=== PATIENT | male | born 1945 | race Asian ===

== ENCOUNTER 2023-10-23 11:02 | Inpatient (IN) | payer OTHER, MEDICAID ==
[~2023-10-23] VITALS: Ht 165.1 cm; Wt 63.5 kg
[2023-10-23 11:03] VITALS: BP_SYST 110; PULSE 114; RESP 17; TEMP 101.7; O2SAT 97
[2023-10-23] MEDS ORDERED: PIPERACILLIN/TAZOBACTAM 3.375 GM/VIAL (ZOSYN) IV ONE (11:51)
[2023-10-23 11:52] LABS: BASOPHILS # (AUTO) 0.1 K/uL (0.0-0.2); BASOPHILS % (AUTO) 0.8 % (0.0-2.0); EOSINOPHILS # (AUTO) 0.1 K/uL (0.0-0.4); EOSINOPHILS % (AUTO) 0.5 % (0.0-4.0); HEMATOCRIT 29.6 % (36-54); LYMPHOCYTES # (AUTO) 0.4 K/uL (1.0-5.5); LYMPHOCYTES % (AUTO) 2.6 % (20.5-51.5); MEAN CORPUSCULAR HEMOGLOBIN 34 pg (27-31); MEAN CORPUSCULAR HGB CONC 34 % (32-36); MEAN CORPUSCULAR VOLUME 100 fL (79.0-98.0); MONOCYTES # (AUTO) 0.9 K/uL (0.0-1.0); MONOCYTES % (AUTO) 6.1 % (1.7-9.3); PLATELET COUNT (AUTO) 369 K/uL (130-430); RED BLOOD CELL COUNT(AUTO) 2.98 MIL/uL (4.2-6.2); RED CELL DISTRIBUTION WIDTH 13.1 % (9.0-15.0); WHITE BLOOD COUNT (AUTO) 14.4 K/uL (4.8-10.8)
[2023-10-23 12:09] LABS: COVID19 ANTIGEN SOFIA FIA NEGATIVE (NEGATIVE)
[2023-10-23 12:09] LABS: ALANINE AMINOTRANSFERASE 41 U/L (12-78); ALBUMIN 2.1 g/dL (3.4-4.8); ANION GAP 9 (5-15); ASPARTATE AMINOTRANSFERASE 28 U/L (10-37); CALCIUM 8.4 mg/dL (8.4-11.0); CARBON DIOXIDE 23 mmol/L (23-29); CHLORIDE 103 mmol/L (98-107); GLUCOSE 111 mg/dL (74-106); POTASSIUM 4.6 mmol/L (3.5-5.1); SODIUM SERUM 135 mmol/L (136-145); TOTAL BILIRUBIN 0.5 mg/dL (0.0-1.0); TOTAL PROTEIN, SERUM 7.2 g/dL (6.4-8.3); UREA NITROGEN, BLOOD 27 mg/dL (8-21)
[2023-10-23 12:11] LABS: BILIRUBIN,DIRECT 0.2 mg/dL (0.0-0.3)
[2023-10-23] MEDS: NS 1000 ML IV.SOLN IV ONE (12:14)
[2023-10-23] MEDS: ACETAMINOPHEN 325 MG TABLET PO ONE (12:14)
[2023-10-23] MEDS: PIPERACILLIN/TAZO 3.375 GM in D5W 50 ML IV ONE (12:14)
[2023-10-23 12:17] LABS: PROTHROMBIN TIME 10.7 SECS (9.5-12.5)
[2023-10-23 12:19] LABS: INFLUENZA TYPE A NEGATIVE (NEGATIVE); INFLUENZA TYPE B NEGATIVE (NEGATIVE)
[2023-10-23 12:21] LABS: BILIRUBIN,URINE NEGATIVE (NEGATIVE); BLOOD, URINE 3+ (NEGATIVE); CLARITY/URINE SL CLOUDY (CLEAR); COLOR,URINE YELLOW (YELLOW); GLUCOSE,URINE NEGATIVE (NEGATIVE); KETONES,URINE NEGATIVE (NEGATIVE); LEUKOCYTE ESTERASE ,URINE 2+ (NEGATIVE); NITRITE, URINE POSITIVE (NEGATIVE); PROTEIN URINE 1+ (NEGATIVE); UROBILINOGEN,URINE 0.2 (0.2-1.0)
[2023-10-23] MEDS: AZITHROMYCIN 500 MG in D5W 250 ML IV ONE (12:27)
[2023-10-23] MEDS ORDERED: AZITHROMYCIN 500 MG/VIAL (ZITHROMAX) IV ONE (12:29)
[2023-10-23] MEDS ORDERED: AMLO5TAB92 PO (12:46)
[2023-10-23] MEDS ORDERED: IRBE150T48 (12:46)
[2023-10-23] MEDS ORDERED: MEMA10TA22 PO (12:46)
[2023-10-23] MEDS ORDERED: DONE10TA44 PO (12:46)
[2023-10-23 12:48] LABS: BACTERIA,URINE MODERATE /HPF (None Seen)
[2023-10-23 12:49] LABS: WBC,URINE 50-80 /HPF (0-3)
[2023-10-23] MEDS ORDERED: [UNRECOGNIZED DRUG - CODE] (12:49)
[2023-10-23] MEDS ORDERED: ZINC50TA2 (12:49)
[2023-10-23] MEDS ORDERED: SENN-153 (12:49)
[2023-10-23] MEDS ORDERED: MOM (12:49)
[2023-10-23] MEDS ORDERED: DULR10 (12:49)
[2023-10-23] MEDS ORDERED: HEPA500015 (12:49)
[2023-10-23] MEDS: VANCOMYCIN HCL 1,000 MG in D5W 250 ML IV ONE (13:24)
[2023-10-23] MEDS ORDERED: VANCOMYCIN HCL 1000 MG/VIAL IV ONE (13:27)
[2023-10-23] MEDS: NACL 0.9% 1,000 ML IV SCH (16:29)
[2023-10-23] MEDS: MEMANTINE HCL 5 MG TABLET PO SCH (21:00)
[2023-10-23 22:00] VITALS: BP_SYST 96; PULSE 88; RESP 18; TEMP 98.1
[2023-10-23 22:01] VITALS: BP_SYST 96; PULSE 85; RESP 17; TEMP 98.2; O2SAT 98
[2023-10-24 02:01] VITALS: BP_SYST 101; PULSE 81; RESP 16; TEMP 98.2; O2SAT 97
[2023-10-24 04:01] VITALS: BP_SYST 101; PULSE 82; RESP 16; TEMP 98.7; O2SAT 97
[2023-10-24 07:26] LABS: BASOPHILS # (AUTO) 0.1 K/uL (0.0-0.2); BASOPHILS % (AUTO) 0.4 % (0.0-2.0); EOSINOPHILS # (AUTO) 0.4 K/uL (0.0-0.4); EOSINOPHILS % (AUTO) 2.5 % (0.0-4.0); HEMOGLOBIN 9.1 g/dL (14.0-18.0); LYMPHOCYTES # (AUTO) 0.8 K/uL (1.0-5.5); MEAN CORPUSCULAR HEMOGLOBIN 34 pg (27-31); MEAN CORPUSCULAR HGB CONC 34 % (32-36); MEAN CORPUSCULAR VOLUME 101 fL (79.0-98.0); MONOCYTES # (AUTO) 1.5 K/uL (0.0-1.0); MONOCYTES % (AUTO) 8.7 % (1.7-9.3); NEUTROPHILS % (AUTO) 83.4 % (40.0-70.0); RED BLOOD CELL COUNT(AUTO) 2.67 MIL/uL (4.2-6.2); RED CELL DISTRIBUTION WIDTH 12.9 % (9.0-15.0); WHITE BLOOD COUNT (AUTO) 16.8 K/uL (4.8-10.8)
[2023-10-24 08:00] VITALS: BP_SYST 93; PULSE 102; RESP 18; TEMP 98.2; O2SAT 95; O2SAT 98
[2023-10-24 08:02] LABS: ANION GAP 12 (5-15); CALCIUM 8.1 mg/dL (8.4-11.0); CARBON DIOXIDE 20 mmol/L (23-29); CHLORIDE 105 mmol/L (98-107); CREATININE 1.53 mg/dL (0.55-1.30); GLUCOSE 85 mg/dL (74-106); POTASSIUM 4.4 mmol/L (3.5-5.1); SODIUM SERUM 137 mmol/L (136-145); UREA NITROGEN, BLOOD 25 mg/dL (8-21)
[2023-10-24] MEDS: MEROPENEM 500 MG in NS 50 ML IV SCH (08:33)
[2023-10-24] MEDS: SENNOSIDES 8.6 MG TABLET GT SCH (08:40)
[2023-10-24] MEDS: DONEPEZIL HCL 5 MG TABLET (ARICEPT) PO SCH (08:40)
[2023-10-24] MEDS: BISACODYL 10 MG/SUPPOSITORY RC SCH (08:49)
[2023-10-24 09:30] LABS: PLATELET COUNT (AUTO) 331 K/uL (130-430)
[2023-10-24 12:02] VITALS: BP_SYST 106; PULSE 104; RESP 17; TEMP 98.6; O2SAT 96
[2023-10-24] MEDS: amLODIPine BESYLATE 5 MG TABLET PO SCH (15:21)
[2023-10-24] MEDS: MILK OF MAGNESIA 30 ML UDC PO SCH (17:16)
[2023-10-24 20:00] VITALS: BP_SYST 116; PULSE 103; RESP 18; TEMP 98.2; O2SAT 95
[2023-10-24] MEDS: HEPARIN SODIUM,PORCINE 5,000 UNITS/ML VIAL SUBCUT SCH (21:10)
[2023-10-25] VITALS: BP_SYST 117; PULSE 97; RESP 17; TEMP 98; O2SAT 96
[2023-10-25 08:00] VITALS: O2SAT 94
[2023-10-25 08:24] VITALS: BP_SYST 123; PULSE 91; RESP 20; TEMP 98.6; O2SAT 95
[2023-10-25] MEDS: BISACODYL 10 MG/SUPPOSITORY RC SCH (09:00)
[2023-10-25] MEDS: LOSARTAN POTASSIUM 50 MG TABLET (COZAAR) PO SCH (09:21)
[2023-10-25 12:30] VITALS: BP_SYST 107; PULSE 94; RESP 20; TEMP 98.4; O2SAT 94
[2023-10-25 14:40] LABS: BASOPHILS % (AUTO) 0.5 % (0.0-2.0); EOSINOPHILS # (AUTO) 0.3 K/uL (0.0-0.4); EOSINOPHILS % (AUTO) 4.1 % (0.0-4.0); HEMATOCRIT 31.8 % (36-54); HEMOGLOBIN 10.8 g/dL (14.0-18.0); LYMPHOCYTES # (AUTO) 0.7 K/uL (1.0-5.5); LYMPHOCYTES % (AUTO) 8.7 % (20.5-51.5); MEAN CORPUSCULAR HEMOGLOBIN 35 pg (27-31); MEAN CORPUSCULAR HGB CONC 34 % (32-36); MEAN CORPUSCULAR VOLUME 103 fL (79.0-98.0); MONOCYTES # (AUTO) 0.9 K/uL (0.0-1.0); MONOCYTES % (AUTO) 11.5 % (1.7-9.3); NEUTROPHILS # (AUTO) 5.8 K/uL (1.8-7.7); NEUTROPHILS % (AUTO) 75.2 % (40.0-70.0); PLATELET COUNT (AUTO) 317 K/uL (130-430); RED BLOOD CELL COUNT(AUTO) 3.09 MIL/uL (4.2-6.2); RED CELL DISTRIBUTION WIDTH 13.6 % (9.0-15.0); WHITE BLOOD COUNT (AUTO) 7.8 K/uL (4.8-10.8)
[2023-10-25] MEDS: BALSAM PERU/CASTOR OIL 56.7 GM OINT...G. TP SCH (15:52)
[2023-10-25] MEDS: FLUCONAZOLE 200 mg/ NS 100 ML IV SCH (15:53)
[2023-10-25 16:44] VITALS: BP_SYST 122; PULSE 100; RESP 20; TEMP 98.6; O2SAT 99
[2023-10-25 20:00] VITALS: BP_SYST 116; PULSE 91; RESP 18; TEMP 98.2; O2SAT 97
[2023-10-26 08:00] VITALS: BP_SYST 126; PULSE 68; RESP 18; TEMP 97.6; O2SAT 97
[2023-10-26 12:31] VITALS: BP_SYST 105; PULSE 87; RESP 16; TEMP 98.3; O2SAT 95
[2023-10-26 16:15] VITALS: BP_SYST 129; PULSE 88; RESP 16; TEMP 98.6; O2SAT 99
[2023-10-26 20:00] VITALS: BP_SYST 108; PULSE 81; RESP 17; TEMP 98.2; O2SAT 97
[2023-10-27] VITALS: BP_SYST 112; PULSE 85; RESP 16; TEMP 98; O2SAT 98
[2023-10-27 06:37] LABS: ANION GAP 9 (5-15); CALCIUM 8.5 mg/dL (8.4-11.0); CARBON DIOXIDE 25 mmol/L (23-29); CHLORIDE 102 mmol/L (98-107); GLUCOSE 88 mg/dL (74-106); POTASSIUM 4.6 mmol/L (3.5-5.1); SODIUM SERUM 136 mmol/L (136-145); UREA NITROGEN, BLOOD 23 mg/dL (8-21)
[2023-10-27 06:39] LABS: BASOPHILS # (AUTO) 0.1 K/uL (0.0-0.2); BASOPHILS % (AUTO) 1.3 % (0.0-2.0); EOSINOPHILS # (AUTO) 0.4 K/uL (0.0-0.4); EOSINOPHILS % (AUTO) 6.3 % (0.0-4.0); HEMATOCRIT 28.9 % (36-54); LYMPHOCYTES % (AUTO) 15.5 % (20.5-51.5); MEAN CORPUSCULAR HEMOGLOBIN 34 pg (27-31); MEAN CORPUSCULAR HGB CONC 35 % (32-36); MEAN CORPUSCULAR VOLUME 98 fL (79.0-98.0); MONOCYTES # (AUTO) 0.8 K/uL (0.0-1.0); MONOCYTES % (AUTO) 12.5 % (1.7-9.3); NEUTROPHILS # (AUTO) 4.3 K/uL (1.8-7.7); NEUTROPHILS % (AUTO) 64.4 % (40.0-70.0); PLATELET COUNT (AUTO) 328 K/uL (130-430); RED BLOOD CELL COUNT(AUTO) 2.94 MIL/uL (4.2-6.2); WHITE BLOOD COUNT (AUTO) 6.6 K/uL (4.8-10.8)
[2023-10-27 08:00] VITALS: O2SAT 96
[2023-10-27 12:48] VITALS: BP_SYST 113; PULSE 82; RESP 17; TEMP 98.1; O2SAT 98
[2023-10-27 16:19] VITALS: BP_SYST 114; PULSE 87; RESP 16; TEMP 97.9; O2SAT 97
[2023-10-27 20:00] VITALS: BP_SYST 130; PULSE 97; RESP 18; TEMP 98.5; O2SAT 96
[2023-10-28] VITALS (7 sets, daily range): BP systolic 106–121; PULSE 88–95; RESP 14–18; TEMP 97–98.6; O2SAT 96–100
== END 2023-10-28 20:30 | disposition home health service (06) | DRG 698 ==
LOC: SED 11:02 → STU 15:33
PROVIDERS: ADMIT Specialist; ATTEND Specialist
DX: T83.518A Infection and inflammatory reaction due to other urinary catheter, initial encounter (principal); A41.51 Sepsis due to Escherichia coli [E. coli]; J18.9 Pneumonia, unspecified organism; N17.9 Acute kidney failure, unspecified; N39.0 Urinary tract infection, site not specified; E44.0 Moderate protein-calorie malnutrition; I10 Essential (primary) hypertension; Z20.822 Contact with and (suspected) exposure to COVID-19; Y83.8 Other surgical procedures as the cause of abnormal reaction of the patient, or of later complication, without mention of misadventure at the time of the procedure; Y92.89 Other specified places as the place of occurrence of the external cause; Z79.899 Other long term (current) drug therapy; Z88.8 Allergy status to other drugs, medicaments and biological substances; Z68.23 Body mass index [BMI] 23.0-23.9, adult
CPT/HCPCS: 36415; 71045; 80048; 80076; 81000; 81001; 81015; 83605; 84484; 85025; 85610; 85730; 87040; 87081; 87086; 87186; 93005; 96365; 97110-GP; 97116-GP; 97530-GP; 99285; G0378; J0456; J0696; J1450; J1644; J2185; J2543; J3370; J7030; J7060